=== PATIENT | male | born 1970 | race Caucasian/White ===

== ENCOUNTER → 2018-01-11 | Outpatient (CLI) | payer OTHER ==
[2018-01-11 09:39] LABS: BASO % 0.3 %; BASO ABS # 0.02 K/uL (0-0.2); EOS % 1.8 %; EOS ABS # 0.14 K/uL (0-0.5); HEMATOCRIT 44.3 % (42-52); HEMOGLOBIN 15.2 g/dL (14.0-18.0); IG# 0.03 K/uL (0.00-0.02); LYMPH % 29.3 %; LYMPH ABS # 2.32 K/uL (1.2-3.4); MEAN CELL VOLUME 86.5 fL (80-100); MEAN CORPUSCULAR HEMOGLOBIN 29.7 pg (25-34); MEAN CORPUSCULAR HGB CONC 34.3 g/dl (32-36); MEAN PLATELET VOLUME 9.4 fL (7.4-10.4); MONO % 9.5 %; MONO ABS # 0.75 K/uL (0.11-0.59); NEUT % 58.7 %; NEUT ABS # 4.66 K/uL (1.4-6.5); PLATELET COUNT 202 K/uL (130-400); RED CELL DISTRIBUTION WIDTH CV 13.3 % (11.5-14.5); RED CELL DISTRIBUTION WIDTH SD 41.9 fL (36.4-46.3); WHITE BLOOD COUNT 7.92 K/uL (4.8-10.8)
[2018-01-11 10:09] LABS: ALBUMIN 4.1 gm/dl (3.4-5.0); ALT/SGPT 27 U/L (12-78); AST/SGOT 12 U/L (15-37); BLOOD UREA NITROGEN 18 mg/dl (7-18); CALCIUM 8.9 mg/dl (8.5-10.1); CARBON DIOXIDE 30 mmol/L (21-32); CREATININE 1.31 mg/dl (0.60-1.40); GLUCOSE 88 mg/dl (70-99); LIPASE 138 U/L (73-393); POTASSIUM 4.2 mmol/L (3.5-5.1); SODIUM 141 mmol/L (136-145)
[2018-01-11 10:11] LABS: ALKALINE PHOSPHATASE 79 U/L (45-117); TOTAL PROTEIN 7.2 gm/dl (6.4-8.2)
--- NOTE | 2018-01-11 10:41 | DIAGNOSTIC IMAGING REPORT ---
ABDOMEN LIMITED (US) HISTORY: Pain. Nausea. R UPPER QUADRANT PAIN. COMPARISON: 08/15/2016 FINDINGS: Pancreas: The pancreas demonstrates a normal echotexture. Liver: Mild fatty infiltration Gallbladder: No gallbladder wall thickening. No gallstones. CBD: 5 mm Right kidney: No hydronephrosis. IMPRESSION: Fatty infiltration of the liver. Otherwise negative study. The above report was generated using voice recognition software. It may contain grammatical, syntax or spelling errors. Electronically signed by: Johny Posadas M.D. 01/11/2018 10:40 AM Dictated Date/Time: 01/11/2018 10:39 AM
== END | disposition home or self-care (01) ==
LOC: C.ULTR 09:15
PROVIDERS: ATTEND Family Medicine
DX: R10.11 Right upper quadrant pain (principal)

== ENCOUNTER → 2018-01-28 | Outpatient (CLI) | payer OTHER ==
[~2018-01-28] MED LIST: SINCALIDE INJ 1.6 MCG in SODIUM CHLORIDE 0.9% 100ML 100 ML IV ONE
--- NOTE | 2018-01-28 13:17 | DIAGNOSTIC IMAGING REPORT ---
NUCLEAR MEDICINE HEPATOBILIARY STUDY WITH EJECTION FRACTION ANALYSIS CLINICAL HISTORY: RUQ PAIN COMPARISON STUDY: Biliary ultrasound dated 01/11/2018 FINDINGS: The patient was injected with 5.3 mCi of technetium 99m Choletec. Sequential anterior images were acquired. There is normal patches of activity into small bowel. The gallbladder was first visualized at 15 minute image. L1 hour, the patient was injected with 1.6 mcg of sincalide utilizing a 30 minute intravenous infusion. The gallbladder ejection fraction was abnormal measuring 19%. IMPRESSION: 1. No evidence of cystic duct obstruction 2. Diminished gallbladder ejection fraction of 19% Electronically signed by: Humberto Delgado M.D. 01/28/2018 1:15 PM Dictated Date/Time: 01/28/2018 1:14 PM
== END | disposition home or self-care (01) ==
LOC: C.NUCL 10:13
PROVIDERS: ATTEND Family Medicine
DX: R10.11 Right upper quadrant pain (principal)